=== PATIENT | female | born 1980 | race Caucasian/White ===

== ENCOUNTER → 2017-12-31 | Outpatient (CLI) | payer BC | LOC: GMAH 14:49 | PROVIDERS: ATTEND Family Medicine | DX: Z71.3 Dietary counseling and surveillance (principal) ==

== ENCOUNTER → 2019-01-27 | Outpatient (CLI) | payer BC | LOC: GMA MATASK 14:36 | PROVIDERS: ATTEND Family Medicine | DX: R53.83 Other fatigue (principal) ==